=== PATIENT | male | born 1945 | race Caucasian/White ===

== ENCOUNTER → 2024-08-24 | Outpatient (CLI) | payer MEDICARE, OTHER, SELFPAY ==
--- NOTE | 2024-08-24 15:28 | XR_ITS ---
Examination: CT abdomen with intravenous contrast CT pelvis with intravenous contrast 2-D coronal reconstructions 2-D sagittal reconstructions Date and time of exam:August 24, 2024 1755 hrs. Indications: Generalized abdominal pain beginning 6 months ago. CTDI: vol (mGy) 8.83 DLP: (mGycm) 579 Technique: Multiple axial sections of the abdomen and pelvis have been obtained. 64 slice high-resolution scanner used. 3 mm axial sections have been obtained, post intravenous injection 60 cc [id number] 2-D sagittal, coronal reconstructions obtained. Low dose protocols were performed. One or more of the following dose reduction techniques were used; automated exposure control, adjustment of the mA and/or KV according to patient size, use of iterative reconstruction technique. Findings: 8mm pulmonary nodule left lower lobe No focal liver or splenic lesions No gallstones Atrophic pancreas Spleen is not enlarged Normal adrenal glands Bilateral multiple renal cysts, the largest right kidney 4.9 cm left kidney 4.8 cm No hydronephrosis or ureteral calculi Abdominal aortic calcification no aneurysmal dilatation No pericecal inflammatory change No bowel obstruction Moderate stool throughout the colon especially rectosigmoid Transverse prostate dimension 4 cm Urinary bladder intact Advanced disc narrowing L5-S1 Impression: 8mm pulmonary nodule left lower lobe, consider CT chest without contrast follow-up to exclude pulmonary nodular metastatic disease Atrophic pancreas Multiple bilateral benign renal cysts, no hydronephrosis or ureteral calculi No pericecal inflammatory change No bowel obstruction
--- NOTE | 2024-08-24 15:31 | XR_ITS ---
Examination: Abdomen AP single view Technique: AP portable supine abdomen, single view Exam date and time: August 24, 2024 1535 hours INDICATIONS: Abdominal pain years. FINDINGS: Large amounts of stool throughout the colon No obstruction No free air Mildly air distended stomach Prominent lumbar spondylosis Moderate to advanced left hip osteoarthritis IMPRESSION: Large amounts of stool throughout the colon
[2024-08-24 15:34] LABS: Basophils # (Auto) 0.1 Thou/mm3 (0.0-0.2); Basophils % (Auto) 1 % (0-2.5); Eosinophils # (Auto) 0.2 Thou/mm3 (0.0-0.5); Eosinophils % (Auto) 2 % (0-10); Hematocrit 41.3 % (41.0-53.0); Hemoglobin 13.6 g/dL (13.5-16.0); Immature Granulocytes % (Auto) 0 % (0-0); Immature Granulocytes Auto 0.02 Thou/mm3 (0.00-0.00); Lymphocytes # (Auto) 1.4 Thou/mm3 (1.0-4.8); Lymphocytes % (Auto) 20 % (10-50); Mean Corpuscular HGB Conc 32.9 g/dl (31.0-37.0); Mean Corpuscular Hemoglobin 29.7 pg (25.0-35.0); Mean Corpuscular Volume 90 fL (80-100); Monocytes # (Auto) 0.7 Thou/mm3 (0.0-0.8); Monocytes % (Auto) 10 % (0-12); Neutrophils # (Auto) 4.8 Thou/mm3 (1.8-7.7); Neutrophils % (Auto) 67 % (37-80); Nucleated Red Blood Cell % 0 /100 WBC (0); Platelet Count 197 Thou/mm3 (140-440); RDW Standard Deviation 46.2 fL (35.1-43.9); Red Blood Count 4.58 Miln/mm3 (4.50-5.90); White Blood Count 7.1 Thou/mm3 (3.8-10.6)
[2024-08-24 16:01] LABS: Alanine Aminotransferase 22 U/L (10-49); Albumin, Serum 4.5 gm/dL (3.4-4.8); Alkaline Phosphatase 92 U/L (46-116); Amylase 21 U/L (30-118); Anion Gap 8 (7-16); Aspartate Amino Transferase 28 U/L (0-34); BUN/Creatinine Ratio 16 Ratio (12-20); Bilirubin,Total 0.8 mg/dL (0.3-1.2); Blood Urea Nitrogen 13 mg/dL (9-23); Carbon Dioxide 28.3 mMol/L (20.0-31.0); Chloride 103 mMol/L (98-107); Creatinine (Component) 0.8 mg/dL (0.6-1.3); Globulin 2.3 gm/dL (2.3-3.5); Glucose 172 mg/dL (74-106); Lipase 20 U/L (12-53); Osmolality,Calculated 281 (275-295); Potassium 3.8 mMol/L (3.4-5.1); Sodium 139 mMol/L (136-145); Total Protein 6.8 gm/dL (5.7-8.2); eGFR > 60 See Note
== END | disposition home or self-care (01) ==
PROVIDERS: PCP Internal Medicine; Referring Provider Specialist; Visit Provider Specialist
DX: K59.00 Constipation, unspecified (principal); R91.1 Solitary pulmonary nodule; K86.89 Other specified diseases of pancreas; N28.1 Cyst of kidney, acquired
CPT/HCPCS: 36415; 74018; 74177; 80053; 81001; 82150; 83690; 85025; A4649; Q9967

== ENCOUNTER 2025-06-03 11:30 | Day surgery (SDC) | payer MEDICARE, BC, SELFPAY ==
[2025-06-03] VITALS (9 sets, daily range): BP systolic 117–157; BP diastolic 57–78; PULSE 65–100; RESP 11–24; TEMP 36.6; O2SAT 95–100; BMI 25.4
[2025-06-03] MEDS: Ampicillin Inj 2,000 MG in SODIUM CHLORIDE 0.9% (POP) 100 ML 100 MG IV (12:01)
[2025-06-03] MEDS: GENTAMICIN IV (12:40)
[2025-06-03] MEDS: SODIUM CHLORIDE 0.9% 500 ML 500 ML 20 ML IV (12:40)
[2025-06-03] MEDS: SODIUM CHLORIDE IV (12:40)
[2025-06-03] MEDS: fentaNYL CIT INJ 50 mCg/ML AMP 2ML (ASD USE ONLY) IVP (12:42)
[2025-06-03] MEDS: MIDAZOLAM INJ 1 MG/ML VIAL 2 ML (ASD USE ONLY) 2 MG IVP (12:45)
== END 2025-06-03 13:45 | disposition home or self-care (01) ==
PROVIDERS: PCP Internal Medicine; Referring Provider Specialist; Visit Provider Specialist
PROC: 0DBE8ZX Excision of Large Intestine, Via Natural or Artificial Opening Endoscopic, Diagnostic (ICD-10-PCS; CPT 45380; principal; 2025-06-03 12:00)
DX: K57.30 Diverticulosis of large intestine without perforation or abscess without bleeding (principal); R19.4 Change in bowel habit; K64.9 Unspecified hemorrhoids; R10.30 Lower abdominal pain, unspecified; E10.9 Type 1 diabetes mellitus without complications; I10 Essential (primary) hypertension; E78.5 Hyperlipidemia, unspecified; I49.9 Cardiac arrhythmia, unspecified; Z79.899 Other long term (current) drug therapy
CPT/HCPCS: 45378; A4217; A4649; J0290; J1580; J2250; J3010; J7999